=== PATIENT | male | born 1970 | race Asian ===

== ENCOUNTER 2020-10-16 18:50 | Emergency (ER) | payer MEDICAID, OTHER ==
[~2020-10-16] VITALS: Ht 172.7 cm; Wt 90.0 kg
[2020-10-16 19:21] VITALS: BP 139/76
[2020-10-16] MEDS ORDERED: BUPRENORPHINE HCL/NALOXONE HCL 8-2 MG SUBLINGUAL TABLET SL ONE (19:30)
== END 2020-10-16 21:35 | disposition home or self-care (01) ==
LOC: EMS 18:50
DX: F11.23 Opioid dependence with withdrawal (principal)
CPT/HCPCS: 99283

== ENCOUNTER 2020-10-21 18:38 | Emergency (ER) | payer MEDICAID ==
[~2020-10-21] VITALS: Ht 172.7 cm; Wt 81.8 kg
[2020-10-21 21:23] VITALS: BP 125/78
== END 2020-10-21 21:30 | disposition home or self-care (01) ==
LOC: EMS 18:39
DX: L02.413 Cutaneous abscess of right upper limb (principal); L02.414 Cutaneous abscess of left upper limb; F11.90 Opioid use, unspecified, uncomplicated
CPT/HCPCS: 99283; Z7502